=== PATIENT | female | born 2000 | race Caucasian/White ===

== ENCOUNTER 2022-10-30 10:46 | Outpatient (CLI) | payer BC, SELFPAY ==
[2022-10-30 15:24] LABS: Chlamydia DNA Amplified* NOT DETECTED (No Detected); GC DNA Amplified* NOT DETECTED (No Detected)
== END 2022-10-30 10:47 | disposition home or self-care (01) ==
PROVIDERS: Visit Provider Registered Nurse
DX: Z11.3 Encounter for screening for infections with a predominantly sexual mode of transmission (principal)
CPT/HCPCS: 87491; 87591

== ENCOUNTER 2022-11-06 08:10 | Outpatient (CLI) | payer BC, SELFPAY ==
--- NOTE | 2022-11-06 08:15 | CRLHL7_ITS ---
For Patients: As a result of the Century Cures Act, medical imaging exams and procedure reports are released immediately into your electronic medical record. You may view this report before your referring provider. If you have questions, please contact your health care provider. Indication: LEFT AXILLARY SWELLING/MASS Technique: Grayscale and color Doppler ultrasound of the left axilla performed. Comparison: None Findings: Normal morphology of left axillary lymph nodes are present containing normal central fatty dory and normal vascularity. No cortical thickening. Lymph nodes measures 3 x 2 x 3 millimeters, 7 x 4 x 5 millimeters and 2.6 x 0.9 x 1.6 cm. Impression: Normal left axillary lymph nodes. No suspicion for malignancy. Dictated by Gualberto Daigle MD @ 11/06/2022 8:49:40 AM (Electronically Signed)
== END 2022-11-06 08:11 | disposition home or self-care (01) ==
LOC: US 08:12
PROVIDERS: Visit Provider Registered Nurse
DX: R22.30 Localized swelling, mass and lump, unspecified upper limb (principal)
CPT/HCPCS: 76882

== ENCOUNTER 2022-12-25 15:43 | Outpatient (CLI) | payer BC, SELFPAY ==
[2022-12-25 16:20] LABS: Basophils Absolute Auto 0.06 K/uL (0.00-0.30); Basophils Percent Auto 0.7 % (0.0-3.0); Eosinophils Absolute Auto 0.32 K/uL (0.00-0.50); Eosinophils Percent Auto 3.9 % (0.0-7.0); Hematocrit 41.4 % (33.0-51.0); Hemoglobin* 13.8 gm/dL (12.0-16.0); Immature Granulocytes Abs Auto 0.05 K/uL (0.00-0.30); Immature Granulocytes Pct Auto 0.6 %; Lymphocytes Absolute Auto 3.15 K/uL (0.90-2.90); Lymphocytes Percent Auto 38.7 % (20-44); Mean Corpuscular HGB Conc 33 gm/dL (32-36); Mean Corpuscular Hemoglobin 28 pg (26-34); Mean Corpuscular Volume 85 fL (80-100); Monocytes Percent Auto 7.7 % (0.0-11.0); Neutrophils Absolute Auto 3.94 K/uL (1.7-7.0); Neutrophils Percent Auto 48.4 % (42.0-72.0); Platelet Count* 354 K/uL (140-440); RDW Coefficient of Variation % 13.6 % (11.5-15.5); Red Blood Count 4.88 m/uL (4.00-5.20); White Blood Count* 8.15 K/uL (4.50-11.00)
[2022-12-25 16:41] LABS: Slide Review Reflex No
[2022-12-25 17:03] LABS: Free T4 Free Thyroxine* 0.94 ng/dL (0.70-1.85)
[2022-12-25 17:30] LABS: Hemoglobin A1C* 4.58 % (0-5.6)
[2022-12-25 19:52] LABS: Vitamin D 25 Hydroxy* 37 ng/mL (30-80)
[2022-12-28 03:47] LABS: Total T3 115 ng/dL (80-200)
== END 2022-12-25 15:44 | disposition home or self-care (01) ==
PROVIDERS: Visit Provider Nurse Practitioner Psychiatric/Mental Health
DX: Z79.899 Other long term (current) drug therapy (principal)
CPT/HCPCS: 36415; 82306; 82728; 83036; 84439; 84443; 84480; 85025

== ENCOUNTER 2023-10-17 08:46 | Outpatient (CLI) | payer BC, SELFPAY ==
--- OUTSIDE RECORDS SUMMARY | 2023-10-18 06:08 | XMS_ITS | Clinical Summary ---
Author Organization [facility] Address [address] [place] [id number] Care Team Providers Care Mail Clerks Supervisor Name Role Phone No Ref-Primary, Physician Primary Care Provider Allergies No known active allergies Medications Medication Sig Dispensed Refills Start Date End Date Status buPROPion (WELLBUTRIN XL) 150 MG 24 hr tablet Take 150 mg by mouth 02/02/2021 Active busPIRone (BUSPAR) 5 MG tablet Take 5 mg by mouth 02/02/2021 Active escitalopram (LEXAPRO) 10 MG tablet Take 1 Tablet (10 mg) by mouth every morning. 07/10/2020 Active hydrOXYzine (ATARAX) 25 MG tablet Take 1-2 Tablets (25-50 mg) by mouth every 6 hours if needed for Anxiety. 05/16/2021 Active albuterol (PROAIR HFA/PROVENTIL HFA/VENTOLIN HFA) 108 (90 Base) MCG/ACT inhalerIndications:Wh eezing,Viral URI with cough Inhale 2 puffs into the lungs every 4 hours as needed for shortness of breath / dyspnea or wheezing 18 g 1 07/07/2021 Active Active Problems Problem Noted Date Diagnosed Date Acne 11/20/2018 Major depressive disorder, s alannah episode, in full remission (H24) 11/20/2018 Generalized anxiety disorder 03/14/2017 Social History Tobacco Use Types Packs/Day Years Used Date Smoking Tobacco: Never Smokeless Tobacco: Never Adolescent Education Answer Date Record ed Getting School Help Needed Not on file 12/28 Sex and Gender Information Value Date Recorded Sex Assigned at Not on file Gender Identity Not on file Sexual Orientation Not on file Last Filed Vital Signs Vital Sign Reading Time Taken Comments Blood Pressure 125/68 09/21/2021 5:29 PM CDT Pulse 70 09/21/2021 5:29 PM CDT Temperature 36.9 ??C (98.4 ??F) 09/21/2021 5:29 PM CD T Respiratory Rate 16 09/21/2021 5:29 PM CDT Oxygen Saturation 98% 09/21/2021 5:29 PM CDT Inhaled Oxygen Concentration - - Weight 72.6 kg (160 lb) 09/21/2021 5:29 PM CDT Height 170.2 cm (5' 7) 09/21/2021 5:29 PM CDT Body Mass Index 25.06 09/21/2021 5:29 PM CDT Plan of Treatment Health Maintenance Due Date Last Done Comments ADVANCE CARE PLANNING 2002 ANNUAL REVIEW OF HM ORDERS 2002 CHLAMYDIA SCREENING 2002 DEPRESSION ACTION PLAN 2002 PHQ-9 2002 HIV SCREENING 2017 HEPATITIS C SCREENING 2020 YEARLY PREVENTIVE VISIT 11/25/2020 11/26/2019 COVID-19 Vaccine (2022- season) 2022 03/26/2021, 08/10/2020, 07/21/2020 PAP 10/02/2023 INFLUENZA VACCINE (#1) 2023 0, 02/24/2015, 02/07/2009, Additional history exists DTAP/TDAP/TD IMMUNIZATION (7 - Td or Tdap) 08/26/2024 08/26/2014, 01/20/2007, 04/24/2004, Additional history exists HEPATITIS B IMMUNIZATION Completed 004, 02/01/2003, 2002, Additional history exists Pneumococcal Vaccine: Pediatrics (0 to 5 Years) and At-Risk Patients (6 to 64 Years) Aged Out 04/12/2003, 02/01/2003, 2002 No longer eligible based on patient's age to complete this topic IPV IMMUNIZATION Completed 01/20/2007, 09/2003, 02/01/2003, Additional history exists HPV IMMUNIZATION Completed 02/24/2015, , 08/26/2014 MENINGITIS IMMUNIZATION Completed 11/20/2018, 08/26 RSV MONOCLONAL ANTIBODY Aged Out No l onger eligible based on patient's age to complete this topic Care Teams Mail Clerks Supervisor Relationship Specialty Start Date End Date No Ref-Primary, Physician PCP - General 07/07/21
--- OUTSIDE RECORDS SUMMARY | 2023-10-18 06:08 | XMS_ITS | Clinical Summary ---
Author Organization [facility] Address [place], [place] [address] Care Team Providers Care 911 Emergency Dispatcher Name Role Phone Pcp, No Primary Care Provider Unavailabl e Allergies No known active allergies Medications Medication Sig Dispensed Refills Start Date End Date Status etonogestrel subdermal implant (NEXPLANON) 68 mg implant Remove no later than 12/16/2022 Placed in left arm 1 Device 12/17/2019 Active tretinoin 0.05 % 0.05 % creamIndications:Acne , unspecified acne type APPLY DAILY AT BEDTIME AFTER CLEANSING. 45 g 2 02/02/2021 Active buPROPion (WELLBUTRIN XL) 300 mg Extended-Release tabletIndications:MARGY (generalized anxiety disorder),Depression, major, single episode, moderate (HC) Take 1 Tablet (300 mg) by mouth once daily. 90 Tablet 10/16/2021 Active gabapentin (NEURONTIN) 100 mg capsuleIndications:GA D (generalized anxiety disorder) Take 1 Capsule (100 mg) by mouth 3 times daily if needed (anxiety). 30 Capsule 10/16/2021 Active escitalopram oxalate (LEXAPRO) 20 mg tabletIndications:MARGY (generalized anxiety disorder),Depression, major, single episode, moderate (HC) Take 1 Tablet (20 mg) by mouth every morning. 90 Tablet 10/16/2021 Active busPIRone (BUSPAR) 5 mg tabletIndications:MARGY (generalized anxiety disorder) Take 1 Tablet (5 mg) by mouth in the morning and 1 Tablet (5 mg) in the evening. 180 Tablet 10/16/2021 Active Hospital, Clinic, or Other Facility Administered Medication Ordered Dose Route Frequency Start Date End Date Status etonogestrel subdermal implant (NEXPLANON) 1 EachIndications:Nexplanon insertion 1 Each Sdrm Q 3 YEARS 12/17/2019 Active Active Problems Problem Noted Date Diagnosed Date Nexplanon insertion 12/17/2019 Acne 11/20/2018 Major depressive disorder, s alannah episode, in full remission 11/20/2018 Generalized anxiety disorder 03/14/2017 Resolved Problems Problem Noted Date Diagnosed Date Resolved Date Major depressive disorder, s alannah episode, moderate 03/14/2017 11/20/2018 Immunizations Name Administration Dates Next Due COVID-19 vaccine (Vaavud NTZeaChem 30mcg/0.3mL) PF, MDV 08/10/2020,07/21/2020 DTaP 01/20/2007,04/24/2004 [id number] (Pediarix) 04/12/2003,01/28/2003,0 2002 HIB PRP-OMP (PedvaxHIB) 04/24/2004,02/01/2003, HPV 9 (Gardasil 9) 02/24/2015,10/21/2014 Hepatitis A (Peds) 12/13/2016,08/26/2014 Hepatitis B (Peds) 2002 Human Papilloma Virus Vaccine 08/26/2014 Inactivated Polio Vaccine 01/20/2007 Influenza, IIV3 (Age 6-35 mos) 04/12/2003 Influenza, IIV4 02/24/2015 Influenza, IIV4 (=>6mos) MDV 02/10/2020 MMR 01/20/2007,01/24/2004 Meningococcal Vaccine (Menactra) 11/20/2018,08/06 Pneumococcal conj 7-Valent (Prevnar 7) 4,02/01/2003,2002 Tdap 08/26/2014 Tuberculin (PPD) 10/23/2020 Varicella Vaccine 01/20/2007,02/02/2004 Family History Medical History Relation Name Comments Good Health Brother Good Health Father Good Health Maternal Grandfather Good Health Maternal Grandmother Good Health Mother Lung disease Paternal Grandfather smoker, uses nebs Good Health Paternal Grandmother Relation Name Status Comments Brother Father Maternal Grandfather Maternal Grandmother Mother Paternal Grandfather Paternal Grandmother Social History Tobacco Use Types Packs/Day Years Used Date Smoking Tobacco: Never Smokeless Tobacco: Never Tobacco Cessation:Counseling Given: No Comments:passive Alcohol Use Standard Drinks/Week Comments No 0 (1 standard drink = 0.6 oz pur e alcohol) PHQ-2 Answer Date Recorded PHQ-2 TOTAL SCORE 5 10/16/2021 Social Connections Answer Date Recorded Frequency of Communication with Friends and Fami ly Not on file 04/07/2021 Financial Resource Strain Answer Date R ecorded Difficulty of Paying Living Expenses Not on file 04/07/2021 Difficulty of Paying Living Expenses Not on file 04/07/2021 Sex and Gender Information Value Date Recorded Sex Assigned at Not on file Gender Identity Not on file Sexual Orientation Not on file Obstetrics History Last Filed Vital Signs Vital Sign Reading Time Taken Comments Blood Pressure 112/78 11/17/2020 3:17 PM CDT Pulse 110 11/17/2020 3:17 PM CDT Temperature 36.2 ??C (97.2 ??F) 11/17/2020 3:17 PM CD T Respiratory Rate 16 11/17/2020 3:17 PM CDT Oxygen Saturation 96% 11/17/2020 3:17 PM CDT Inhaled Oxygen Concentration - - Weight 68.9 kg (151 lb 12.8 oz) 11/17/2020 3:17 PM CDT Height 170.2 cm (5' 7) 10/23/2020 1:34 PM CDT Body Mass Index - - Plan of Treatment Health Maintenance Due Date Last Done Comments HIV for age 15-65 2017 Hepatitis C screening for age 18-79 2020 Chlamydia for age 16-24 11/25/2020 11/26/2019 BMI (ht and wt on same day) for age 18+ 10/23/2021 10/23/2020 Depression screening for age 12+ 10/16/2022 10/16/2021, 02/02/2021, 10/25/2020, Additional history exists COVID-19 vaccine series ( season) 2022 03/26/2021, 08/10/2020, 07/21/2020 Pap test for age 21-65 10/02/2023 Influenza for age 9-49 12/07/2023 02/10/2020, 2014 Tetanus booster 08/26/2024 08/26/2014 Pneumococcal series for age 6-64 Aged Out 04/12/2003, 02/01/2003, 2002 No longer eligible based on patient's age to complete this topic Tdap Completed 08/26/2014 HPV series for age 9-26 Completed 02/25/20 15, 10/21/2014, 08/26/2014 Meningococcal series for age 11-21 Completed 11/20/2018, 08/26/2014 Procedures Procedure Name Priority Date/Time Associated Diagnosis Comments GC CHLAMYDIA TRACH PROBE Routine 11/26/2019 10:15 AM CDT Encounter for well child check without abnormal findings from Last 3 Months or Most Recently Relevant to Health Maintenance Results * GC CHLAMYDIA TRACH PROBE (11/26/2019 10:15 AM CDT) CHLAMYDIA PCR NOT Detected NOT Detected 020 5:33 PM CDT [facility] GONORRHOEAE PCR NOT Detected NOT Detected 11/26/2019 5:33 PM CDT [facility] Other URINE SPECIMEN / Unknown Non-Blood / Unknown 11/26/2019 10:15 AM CDT 11/26/2019 10:17 AM CDT Laura Dixon NP MICROBIOLOGY [facility] [address] [place] [address], [place] from Last 3 Months or Most Recently Relevant to Health Maintenance Care Teams 911 Emergency Dispatcher Relationship Specialty Start Date End Date Pcp, No . PCP - General 09/15/19
--- OUTSIDE RECORDS SUMMARY | 2023-10-18 06:08 | XMS_ITS | Referral Summary ---
Author Organization [facility] Address [address] [place] [id number] Care Team Providers Care Real Estate Site Analyst Name Role Phone No Ref-Primary, Physician Primary [...] 09/21/2021 5:29 PM CDT Plan of Treatment Not on file Care Teams Real Estate Site Analyst Relationship Specialty Start Date End Date No Ref-Primary, Physician PCP - General 07/07/21
== END 2023-10-17 08:47 | disposition home or self-care (01) ==
LOC: NFLDREF 10-18 06:07
PROVIDERS: PCP Family Medicine; Referring Provider Family Medicine; Visit Provider Nurse Practitioner Family
DX: N39.0 Urinary tract infection, site not specified (principal); N30.90 Cystitis, unspecified without hematuria
CPT/HCPCS: 87086; 87186

== ENCOUNTER 2024-01-13 14:07 | Outpatient (CLI) | payer BC, SELFPAY ==
--- OUTSIDE RECORDS SUMMARY | 2024-01-13 14:12 | XMS_ITS | Clinical Summary ---
Author Organization [facility] Address [address] [place] [id number] Care Team Providers Care Superintendent Maintenance Name Role Phone No Ref-Primary, Physician Primary [...] full remission 11/20/2018 Generalized anxiety disorder 03/14/2017 Social History [...] SCREENING 2020 YEARLY PREVENTIVE VISIT 11/25/2020 11/26/2019 PAP 10/02/2023 COVID-19 Vaccine ( season) 2023 03/26/2021, 08/10/2020, 07/21/2020 INFLUENZA VACCINE (#1) 2023 , 02/24/2015, 02/07/2009, Additional history exists DTAP/TDAP/TD IMMUNIZATION (7 - Td or Tdap) 08/26/2024 08/26/2014, 01/20/2007, 04/24/2004, Additional history exists RSV VACCINE (1 - 1-dose 75+ series) 2077 HEPATITIS B IMMUNIZATION Completed 004, 02/01/2003, 2002, Additional history exists Pneumococcal Vaccine: Pediatrics (0 to 5 Years) and At-Risk Patients (6 to 64 Years) Aged Out 04/12/2003, 02/01/2003, 2002 No longer eligible based on patient's age to complete this topic HPV IMMUNIZATION Completed 02/24/2015, , 08/26/2014 MENINGITIS IMMUNIZATION Completed 11/20/2018, 08/26 RSV MONOCLONAL ANTIBODY Aged Out No l onger eligible based on patient's age to complete this topic Care Teams Superintendent Maintenance Relationship Specialty Start Date End Date No Ref-Primary, Physician PCP - General 07/07/21
--- OUTSIDE RECORDS SUMMARY | 2024-01-13 14:12 | XMS_ITS | Clinical Summary ---
Author Organization [facility] Address [place], [place] [address] Care Team Providers Care Production Operator Name Role Phone Pcp, No Primary Care [...] Name Administration Dates Next Due COVID-19 vaccine (Earth Sky NTFi.tt 30mcg/0.3mL) PF, MDV 08/10/2020,07/21/2020 DTaP 01/20/2007,04/24/2004 [id number] (Pediarix) 04/12/2003,01/28/2003,0 2002 HIB PRP-OMP (PedvaxHIB) 04/24/2004,02/01/2003, [...] 10/16/2022 10/16/2021, 02/02/2021, 10/25/2020, Additional history exists Pap test for age 21-65 10/02/2023 COVID-19 vaccine series ( season) 2023 03/26/2021, 08/10/2020, 07/21/2020 Influenza for age 9-49 12/07/2023 02/10/2020, 2014 [...] Detected NOT Detected 020 5:33 PM CDT [facility] GONORRHOE[facility] PCR NOT Detected NOT Detected 11/26/2019 5:33 PM CDT [facility] Other URINE SPECIMEN / Unknown Non-Blood / Unknown 11/26/2019 10:15 AM CDT 11/26/2019 10:17 AM CDT Laura Dixon NP MICROBIOLOGY [facility] [address] [place] [id number], from Last 3 Months or Most Recently Relevant to Health Maintenance Care Teams Production Operator Relationship Specialty Start Date End Date Pcp, No . PCP - General 09/15/19
--- OUTSIDE RECORDS SUMMARY | 2024-01-13 14:12 | XMS_ITS | Referral Summary ---
Author Organization [facility] Address [address] [place] [id number] Care Team Providers Care Soda Column Operator Name Role Phone No Ref-Primary, Physician Primary [...] of Treatment Not on file Care Teams Soda Column Operator Relationship Specialty Start Date End Date No Ref-Primary, Physician PCP - General 07/07/21
== END 2024-01-13 14:08 | disposition home or self-care (01) ==
PROVIDERS: PCP Family Medicine; Visit Provider Family Medicine
DX: R53.83 Other fatigue (principal); R35.0 Frequency of micturition; F41.9 Anxiety disorder, unspecified; F32.A Depression, unspecified; L70.9 Acne, unspecified
CPT/HCPCS: 80053; 82306; 82607; 82728; 84443; 86140; 87086